=== PATIENT | male | born 1980 | race Caucasian/White ===

== ENCOUNTER 2017-09-28 03:44 | Observation (INO) | payer MEDICAID ==
[2017-09-28] MEDS ORDERED: ONDANSETRON 4 MG/2 ML VIAL IVP ONE (03:48)
[2017-09-28] MEDS ORDERED: NS 1,000 ML IV ONE ×2 (03:48→05:17)
--- NOTE | 2017-09-28 03:51 | EDPHY ---
H & P HPI/ROS: HPI CHIEF COMPLAINT: Flu-like illness, cough, nausea, vomiting HISTORY OF PRESENT ILLNESS: Patient very pleasant 37-year-old male, he reports that he is not take any daily medications, presents emergency room by EMS from a local retirement stating he woke up around 3:00 a.m. with nausea vomiting, and for the past week he has been sick with an upper respiratory tract infection and flu-like illness with cough with productive of sputum. He denies any chest pain. He does endorse chills. No significant abdominal pain. Denies diarrhea. Main complaint is nausea vomiting. Also additionally cough. Out short of breath. Past Medical History: Denies significant medical history except for PTSD and anxiety Past Surgical History: No recent surgery Social History: Homeless, admits to doing cocaine 1 day ago. Denies other drugs or alcohol. Does smoke tobacco daily. Family History: Noncontributory ROS REVIEW OF SYSTEMS: A comprehensive 10 point review of systems is otherwise negative aside from elements mentioned in the history of present illness. Exam Constitutional appears nontoxic, stable vital signs, triage nursing summary reviewed, vital signs reviewed, awake/alert. Eyes normal conjunctivae and sclera, EOMI, PERRLA. HENT normal inspection, atraumatic, moist mucus membranes, no epistaxis, neck supple/ no meningismus, no raccoon eyes. Respiratory clear to auscultation bilaterally, normal breath sounds, no respiratory distress, no wheezing. Cardiovascular rate normal, regular rhythm, no murmur, no edema, distal pulses normal. Gastrointestinal soft, non-tender, no rebound, no guarding, normal bowel sounds, no distension, no pulsatile mass. Genitourinary no CVA tenderness. Musculoskeletal no midline vertebral tenderness, full range of motion, no calf swelling, no tenderness of extremities, no meningismus, good pulses, neurovascularly intact. Skin pink, warm, & dry, no rash, skin atraumatic. Neurologic awake, alert and oriented x 3, AAOx3, moves all 4 extremities equally, motor intact, sensory intact, CN II-XII intact, normal cerebellar, normal vision, normal speech. Psychiatric normal mood/affect. Heme/Lymph/Immune no lymphadenopathy. Differential Diagnosis: Includes but is not limited to in a particular order cocaine abuse, dehydration, electrolyte disturbance, influenza, pneumonia, acute nausea and vomiting Medical Decision Making: Plan for patient IV establishment blood draw, IV fluid bolus 1 L normal saline, IV Zofran for nausea, chest x-ray two view to rule out pneumonia, check influenza, check basic blood work and re-evaluate. Re-evaluation: ED x-ray chest two view: I do not appreciate acute cardiopulmonary disease. Specifically I do not appreciate pneumonia. 0513: Patient is sleeping at this time. Resting comfortably. He did ambulate well to the bathroom give us a urine sample. Blood work shows electrolytes are appropriate. Mild leukocytosis. I do not appreciate pneumonia on his x-ray. It is possibly has a viral process. Influenza still pending at this time. 0620: I did go re-evaluate this patient this time he is complaining of abdominal pain and moaning. Reexamine his abdomen he soft however is complaining of tenderness in his lower abdomen. Given that he is complaining of rather severe abdominal pain I will proceed with CT scan abdomen pelvis with IV contrast. Rule out appendicitis. He does have a leukocytosis. Drug screen noted to be positive for cocaine and marijuana. 0710: CT scan abdomen pelvis with IV contrast reviewed. Shows enteritis. Dilated small bowel loops. No evidence of obstruction or acute appendicitis. Given the patient is having abdominal pain nausea vomiting and ongoing despite intervention here in emergency room he will be admitted to the medicine service for further observation IV fluids nausea pain control. 0718: Spoke with Dr. Burton She agrees to admit. Reason for admission vomiting, nausea, vomiting, dehydration, enteritis and cocaine use. Source: Patient, EMS Constitutional: Initial Vital Signs Heart Rate 83 09/28/17 03:53 Respiratory Rate 18 09/28/17 03:53 Blood Pressure 128/75 H 09/28/17 03:53 O2 Sat (%) 97 09/28/17 03:53 O2 Delivery Mode Room Air Allergies/Adverse Reactions: No Known Allergies Allergy (Unverified 09/28/17 03:53) Home Medications: Medication Instructions Recorded QUEtiapine FUMARATE [Seroquel 25 25 mg PO HS 09/28/17 mg (*)] Medical Decision Making - Data Points Laboratory Results: Laboratory Results 09/28/17 03:45 09/28/17 03:45 Medications Given: Discontinued Medications Acetaminophen (Tylenol) 650 mg PO Q4HRS PRN PRN Reason: Pain, Mild/Fever, Can Take PO Stop: 03/27/18 07:25 Last Admin: 09/28/17 16:06 Dose: 650 mg Al Hydroxide/Mg Hydroxide (Maalox Susp) 30 ml PO Q4HRS PRN PRN Reason: Indigestion Stop: 03/27/18 16:08 Last Admin: 09/29/17 10:06 Dose: 30 ml Albuterol/Ipratropium (Duoneb) 3 ml IH EDNOW ONE Stop: 09/28/17 04:08 Last Admin: 09/28/17 04:40 Dose: 3 ml Fluticasone Propionate (Flonase Nasal [place]) 2 sprays EACHNARE DAILY KRISTIE Stop: 03/28/18 09:59 Last Admin: 09/29/17 10:07 Dose: 1 mcg Sodium Chloride (Ns) 1,000 mls @ 0 mls/hr IV EDNOW ONE; Wide Open PRN Reason: Protocol Stop: 09/28/17 03:49 Last Admin: 09/28/17 04:02 Dose: 1,000 mls Sodium Chloride (Ns) 1,000 mls @ 0 mls/hr IV ONCE ONE PRN Reason: Wide Open Stop: 09/28/17 05:18 Last Admin: 09/28/17 05:21 Dose: 1,000 mls Lorazepam (Ativan Injection) 1 mg IVP EDNOW ONE Stop: 09/28/17 06:24 Last Admin: 09/28/17 06:27 Dose: 1 mg Nicotine (Nicoderm Cq) 21 mg TD DAILY KRISTIE Stop: 03/27/18 14:14 Last Admin: 09/29/17 10:07 Dose: 21 mg Ondansetron HCl (Zofran) 4 mg IVP EDNOW ONE Stop: 09/28/17 03:49 Last Admin: 09/28/17 04:02 Dose: 4 mg Quetiapine Fumarate (Seroquel) 25 mg PO HS KRISTIE Stop: 03/27/18 20:59 Last Admin: 09/28/17 20:45 Dose: Not Given Departure - Departure Disposition: [facility] Acute Clinical Impression: Viral syndrome Abdominal pain Qualifiers: Abdominal location: unspecified location Qualified Code(s): R10.9 - Unspecified abdominal pain Vomiting Qualifiers: Vomiting type: unspecified Vomiting Intractability: unspecified Nausea presence : with nausea Qualified Code(s): R11.2 - Nausea with vomiting, unspecified Condition: Good
[2017-09-28 03:57] LABS: % IMMATURE GRANULYOCYTES 0.3 % (0.0-1.1); ABSOLUTE IMMATURE GRANULOCYTES 0.05 10^3/uL (0.00-0.10); ADD DIFF? NO; ADD MORPH? NO; ADD SCAN? NO; ATYPICAL LYMPHOCYTE FLAG 20 (0-99); FRAGMENT RBC FLAG 0 (0-99); HEMATOCRIT 49.3 % (40.0-51.0); HEMOGLOBIN 17.4 g/dL (13.7-17.5); LEFT SHIFT FLG 0 (0-99); LIPEMIA HEMOLYSIS FLAG 90 (0-99); MEAN CELL HEMOGLOBIN 31.3 pg (27.9-34.1); MEAN CELL HEMOGLOBIN CONCENTR. 35.3 g/dL (32.4-36.7); MEAN CELL VOLUME 88.7 fL (81.5-99.8); MEAN PLATELET VOLUME 9.2 fL (8.7-11.7); PLATELET CLUMPS FLAG 10 (0-99); PLATELET COUNT 254 10^3/uL (150-400); RED BLOOD CELL COUNT 5.56 10^6/uL (4.40-6.38); RED CELL DISTRIBUTION WIDTH 12.7 % (11.5-15.2)
[2017-09-28] MEDS ORDERED: IPRATROPIUM/ALBUTEROL 3 ML DEYVIAL IH ONE (04:07)
[2017-09-28 04:11] LABS: ALANINE AMINOTRANSFERASE 32 IU/L (21-72); ALBUMIN 4.7 g/dL (3.5-5.0); ALKALINE PHOSPHATASE 83 IU/L (38-126); ANION GAP 15 mEq/L (8-16); ASPARTATE AMINOTRANSFERASE 22 IU/L (17-59); BILIRUBIN,TOTAL 0.3 mg/dL (0.1-1.4); BILIRUBIN-CONJUGATED 0.2 mg/dL (0.0-0.5); BILIRUBIN-UNCONJUGATED 0.1 mg/dL (0.0-1.1); CALCIUM 9.8 mg/dL (8.5-10.4); CARBON DIOXIDE 23 mEq/l (22-31); CHLORIDE 109 mEq/L (97-110); CREATININE 0.8 mg/dL (0.7-1.3); GLOMERULAR FILTRATION RATE > 60; GLUCOSE 104 mg/dL (70-100); POTASSIUM 4.3 mEq/L (3.5-5.2); SODIUM 147 mEq/L (134-144); TOTAL PROTEIN 7.7 g/dL (6.3-8.2)
[2017-09-28 05:37] LABS: COLOR YELLOW; LEUKOCYTE ESTERASE,URINE NEGATIVE (NEGATIVE); NITRITE,URINE NEGATIVE (NEGATIVE)
[2017-09-28] MEDS ORDERED: LORazepam 2 MG/ML INJ IVP ONE (06:23)
[2017-09-28] MEDS ORDERED: IOPAMIDOL (ISOVUE-300) 100 ML BTL ONE (06:31)
[2017-09-28] MEDS ORDERED: ACETAMINOPHEN 325 MG TAB PO PRN (07:26)
[2017-09-28] MEDS ORDERED: LORazepam 2 MG/ML INJ IVP PRN (07:26)
[2017-09-28] MEDS ORDERED: ONDANSETRON 4 MG/2 ML VIAL IVP PRN (07:26)
[2017-09-28] MEDS ORDERED: PROMETHAZINE HCL 25 MG/ML INJ IVP PRN (07:26)
--- NOTE | 2017-09-28 11:12 | ASMTCASEMG ---
Living Arrangements What is your living Answers: Alone arrangement? Who do you live with? Type Of Residence What kind of residence do Answers: Homeless you live in? Discharge Plan Comments Coordination Status Comments Notes: Patient is a 37yo single, homeless male who was admitted to the hospital for flu like illness, cough, nausea, and vomiting. Patient also for the past week had an upper respiratory tract infection. No therapies have been ordered. Patient did come by AMS from the [facility]. He most likely will d/c independent. CM available for d/c needs that may arise. Date Signed: 09/28/2017 11:12 AM Electronically Signed By:Arleen Max LCSW
--- NOTE | 2017-09-28 12:07 | PDGENHP ---
History and Physical - Chief Complaint n/v - History of Present Illness 37 yo homeless man with hx of PSA admitted with multiple complaints but largely complaining of n/v. He notes that he has had a very hard time recently with recurrent tooth infections and as such has had several teeth pulled. He feels as if the infection in his tooth that was pulled has gotten into his sinuses and that he swallows the infection and it caused his abdominal issues. He also has a lot of concerns about his car and his sister--he is very tangential but it sounds like he cannot get his car registered without his sisters help and she is somewhere on [address] and he can't find her. He notes that he spent last night searching for his sister in various hotels on [address] and ultimately ended up smoking crack cocaine. He has been staying in a homeless half-way recently and initially stated he was kicked out of the half-way but then took it back and said they would take him back. He denies abdominal pain, he is tolerating clears and feels he can tolerate solid foods. He has no other complaints other than his chronic tooth issues and his car. History Information - Allergies/Home Medication List Allergies/Adverse Reactions: No Known Allergies Allergy (Unverified 09/28/17 03:53) Home Medications: QUEtiapine FUMARATE [Seroquel 25 mg (*)] 25 mg PO HS 09/28/17 [Last Taken Unknown] I have personally reviewed and updated: family history, medical history, social history, surgical history - Past Medical History no pertinent PMH - Surgical History Additional surgical history: multiple tooth extractions - Family History Positive for: non-pertinent - Social History Smoking Status: Current every day smoker Alcohol Use: Occasionally Drug Use: Cocaine, Other (methamphetamine) Review of Systems Review of Systems: ROS: 10pt was reviewed & negative except for what was stated in HPI & below Physical Exam Physical Exam: Temp Pulse Resp BP Pulse Ox 37.3 C 96 16 123/66 H 93 09/28/17 11:38 09/28/17 11:38 09/28/17 11:38 09/28/17 11:38 09/28/17 11:38 Constitutional: no apparent distress, appears nourished, unkempt Eyes: PERRL Ears, Nose, Mouth, Throat: moist mucous membranes, hearing normal Cardiovascular: regular rate and rhythym, no murmur, rub, or gallop Respiratory: no respiratory distress, no rales or rhonchi Gastrointestinal: normoactive bowel sounds, soft, non-tender abdomen, No guarding, No rebound Genitourinary: no bladder tenderness Skin: warm, normal color Musculoskeletal: full muscle strength Neurologic: AAOx3 Psychiatric: No thought process linear Lab Data & Imaging Review 09/28/17 03:45 09/28/17 03:45 WBC 14.47 10^3/uL (3.80-9.50) H 09/28/17 03:45 RBC 5.56 10^6/uL (4.40-6.38) 09/28/17 03:45 Hgb 17.4 g/dL (13.7-17.5) 09/28/17 03:45 Hct 49.3 % (40.0-51.0) 09/28/17 03:45 MCV 88.7 fL (81.5-99.8) 09/28/17 03:45 MCH 31.3 pg (27.9-34.1) 09/28/17 03:45 MCHC 35.3 g/dL (32.4-36.7) 09/28/17 03:45 RDW 12.7 % (11.5-15.2) 09/28/17 03:45 Plt Count 254 10^3/uL (150-400) 09/28/17 03:45 MPV 9.2 fL (8.7-11.7) 09/28/17 03:45 Neut % (Auto) 82.4 % (39.3-74.2) H 09/28/17 03:45 Lymph % (Auto) 11.8 % (15.0-45.0) L 09/28/17 03:45 Rains % (Auto) 4.1 % (4.5-13.0) L 09/28/17 03:45 Eos % (Auto) 0.9 % (0.6-7.6) 09/28/17 03:45 Baso % (Auto) 0.5 % (0.3-1.7) 09/28/17 03:45 Nucleat RBC Rel Count 0.0 % (0.0-0.2) 09/28/17 03:45 Absolute Neuts (auto) 11.92 10^3/uL (1.70-6.50) H 09/28/17 03:45 Absolute Lymphs (auto) 1.71 10^3/uL (1.00-3.00) 09/28/17 03:45 Absolute Monos (auto) 0.59 10^3/uL (0.30-0.80) 09/28/17 03:45 Absolute Eos (auto) 0.13 10^3/uL (0.03-0.40) 09/28/17 03:45 Absolute Basos (auto) 0.07 10^3/uL (0.02-0.10) 09/28/17 03:45 Absolute Nucleated RBC 0.00 10^3/uL (0-0.01) 09/28/17 03:45 Immature Gran % 0.3 % (0.0-1.1) 09/28/17 03:45 Immature Gran # 0.05 10^3/uL (0.00-0.10) 09/28/17 03:45 Sodium 147 mEq/L (134-144) H 09/28/17 03:45 Potassium 4.3 mEq/L (3.5-5.2) 09/28/17 03:45 Chloride 109 mEq/L (97-110) 09/28/17 03:45 Carbon Dioxide 23 mEq/l (22-31) 09/28/17 03:45 Anion Gap 15 mEq/L (8-16) 09/28/17 03:45 BUN 17 mg/dL (7-23) 09/28/17 03:45 Creatinine 0.8 mg/dL (0.7-1.3) 09/28/17 03:45 Estimated GFR > 60 09/28/17 03:45 Glucose 104 mg/dL (70-100) H 09/28/17 03:45 Calcium 9.8 mg/dL (8.5-10.4) 09/28/17 03:45 Total Bilirubin 0.3 mg/dL (0.1-1.4) 09/28/17 03:45 Conjugated Bilirubin 0.2 mg/dL (0.0-0.5) 09/28/17 03:45 Unconjugated Bilirubin 0.1 mg/dL (0.0-1.1) 09/28/17 03:45 AST 22 IU/L (17-59) 09/28/17 03:45 ALT 32 IU/L (21-72) 09/28/17 03:45 Alkaline Phosphatase 83 IU/L (38-126) 09/28/17 03:45 Total Protein 7.7 g/dL (6.3-8.2) 09/28/17 03:45 Albumin 4.7 g/dL (3.5-5.0) 09/28/17 03:45 Lipase 142 IU/L (23-300) 09/28/17 03:45 Urine Color YELLOW 09/28/17 05:08 Urine Appearance HAZY 09/28/17 05:08 Urine pH 5.0 (5.0-7.5) 09/28/17 05:08 Ur Specific [place] 1.031 (1.002-1.030) H 09/28/17 05:08 Urine Protein NEGATIVE (NEGATIVE) 09/28/17 05:08 Urine Ketones TRACE (NEGATIVE) H 09/28/17 05:08 Urine Blood NEGATIVE (NEGATIVE) 09/28/17 05:08 Urine Nitrate NEGATIVE (NEGATIVE) 09/28/17 05:08 Urine Bilirubin NEGATIVE (NEGATIVE) 09/28/17 05:08 Urine Urobilinogen NEGATIVE EU (0.2-1.0) 09/28/17 05:08 Ur Leukocyte Esterase NEGATIVE (NEGATIVE) 09/28/17 05:08 Urine Glucose NEGATIVE (NEGATIVE) 09/28/17 05:08 Nasal Influenza A PCR NEGATIVE FOR FLU A (NEGATIVE) 09/28/17 04:05 Nasal Influenza B PCR NEGATIVE FOR FLU B (NEGATIVE) 09/28/17 04:05 Urine Opiates Screen NEGATIVE (NEGATIVE) 09/28/17 05:08 Urine Barbiturates NEGATIVE (NEGATIVE) 09/28/17 05:08 Ur Phencyclidine Scrn NEGATIVE (NEGATIVE) 09/28/17 05:08 Ur Amphetamine Screen NEGATIVE (NEGATIVE) 09/28/17 05:08 U Benzodiazepines Scrn NEGATIVE (NEGATIVE) 09/28/17 05:08 Urine Cocaine Screen NON-NEGATIVE (NEGATIVE) H 09/28/17 05:08 U Marijuana (THC) Screen NON-NEGATIVE (NEGATIVE) H 09/28/17 05:08 Visualized and Interpreted Chest x-ray results: Yes Chest X-Ray results: normal Visualized and Interpreted imaging results: Yes Interpretation: c/w gastroenteritis, no appendicitis Assessment & Plan Assessment: Abdominal pain (Acute) Viral syndrome (Acute) Vomiting (Acute) 37 yo M with pmh of homelessness and PSA presenting with gastroenteritis # gastroenteritis: vomiting has resolved, patient is tolerating clears, will advance as tolerated, has not had diarrhea. Will continue to advance diet as we are able today and likely dc in am. Imaging reassuring other than gastroenteritis. # polysubstance abuse: patient states that he has been using cocaine recently but states that otherwise he has been sober from years or cocaine and meth use in the past. Recommending cessation. # leukocytosis: likely related to gastroenteritis, does not meet sepsis criteria , will trend # dispo: observation status, suspect patient will be ready for dc on 09/29 Patient new to my care. Old records reviewed and summarized as above. Care plan reviewed with ER doctor as above.
[2017-09-28] MEDS ORDERED: NICOTINE POLACRILEX 2 MG GUM B PRN (14:05)
[2017-09-28] MEDS ORDERED: BISMUTH SUBSALICYLATE 262 MG CHEWABLE TAB PO PRN (16:09)
[2017-09-28] MEDS: MAG HYDROX/AL HYDROX/SIMETH 30 ML UDCUP PO PRN (17:43)
[2017-09-28] MEDS: NICOTINE 21 MG/24 HR PATCH TD SCH (17:43)
[2017-09-28] MEDS: QUEtiapine FUMARATE 25 MG TAB PO SCH ×2 (20:44→20:45)
[2017-09-28 23:25] VITALS: RESP 16
[2017-09-29 03:45] VITALS: TEMP 98.4
[2017-09-29 05:30] LABS: % IMMATURE GRANULYOCYTES 0.2 % (0.0-1.1); ABSOLUTE IMMATURE GRANULOCYTES 0.01 10^3/uL (0.00-0.10); ADD DIFF? NO; ADD MORPH? NO; ADD SCAN? NO; ATYPICAL LYMPHOCYTE FLAG 30 (0-99); FRAGMENT RBC FLAG 0 (0-99); HEMATOCRIT 42.9 % (40.0-51.0); LEFT SHIFT FLG 0 (0-99); LIPEMIA HEMOLYSIS FLAG 90 (0-99); MEAN CELL HEMOGLOBIN 31.1 pg (27.9-34.1); MEAN CELL VOLUME 88.8 fL (81.5-99.8); MEAN PLATELET VOLUME 9.6 fL (8.7-11.7); PLATELET CLUMPS FLAG 0 (0-99); PLATELET COUNT 157 10^3/uL (150-400); RED BLOOD CELL COUNT 4.83 10^6/uL (4.40-6.38); RED CELL DISTRIBUTION WIDTH 12.5 % (11.5-15.2)
[2017-09-29 05:49] LABS: ALANINE AMINOTRANSFERASE 29 IU/L (21-72); ALBUMIN 3.4 g/dL (3.5-5.0); ALKALINE PHOSPHATASE 58 IU/L (38-126); ANION GAP 11 mEq/L (8-16); ASPARTATE AMINOTRANSFERASE 17 IU/L (17-59); BILIRUBIN,TOTAL 0.5 mg/dL (0.1-1.4); CALCIUM 8.7 mg/dL (8.5-10.4); CARBON DIOXIDE 26 mEq/l (22-31); CHLORIDE 105 mEq/L (97-110); CREATININE 0.8 mg/dL (0.7-1.3); GLOMERULAR FILTRATION RATE > 60; GLUCOSE 95 mg/dL (70-100); MAGNESIUM 1.6 mg/dL (1.6-2.3); POTASSIUM 3.7 mEq/L (3.5-5.2); SODIUM 142 mEq/L (134-144); TOTAL PROTEIN 5.8 g/dL (6.3-8.2)
--- NOTE | 2017-09-29 08:35 | HOSPPROG ---
Hospitalist Progress Note Assessment/Plan: 37 yo M with pmh of homelessness and PSA presenting with gastroenteritis # gastroenteritis -nothing acute noted on imagining -tolerating cl liquids -no further vomiting --requesting a regular diet # polysubstance abuse: patient states that he has been using cocaine recently but states that otherwise he has been sober from years or cocaine and meth use in the past. Recommending cessation. # leukocytosis: resolved #Homelessness will ask CM to provide resources #Recent loss -father in August -says his mom is as well as two siblings are #plan: dc if eating and drinking well Subjective: efren has no specific complaints/ is hungry. Objective: Vital Signs Temp Pulse Resp BP Pulse Ox 36.9 C 69 16 115/70 95 09/29/17 03:43 09/29/17 03:43 09/29/17 03:43 09/29/17 03:43 09/29/17 03:43 Laboratory Results 09/29/17 04:49 09/29/17 04:49 09/28/17 09/29/17 09/30/17 05:59 05:59 05:59 Intake Total 3404 Output Total 375 Balance 3029 - Physical Exam Constitutional: no apparent distress, appears nourished, not in pain Eyes: PERRL Ears, Nose, Mouth, Throat: hearing normal Cardiovascular: regular rate and rhythym Respiratory: no respiratory distress Gastrointestinal: normoactive bowel sounds Skin: warm, normal color Musculoskeletal: full muscle strength Neurologic: AAOx3 Psychiatric: interacting appropriately ICD10 Worksheet Patient Problems: Problems Problem Status Onset Abdominal pain Acute Viral syndrome Acute Vomiting Acute
[2017-09-29 09:52] VITALS: BP 123/76; PULSE 67; O2SAT 94
[2017-09-29] MEDS ORDERED: FLUTICASONE NASAL 120 SPRAYS/16 GM MDI EACHNARE SCH (10:00)
[2017-09-29] MEDS: MAG HYDROX/AL HYDROX/SIMETH 30 ML UDCUP PO PRN (10:06)
[2017-09-29] MEDS: NICOTINE 21 MG/24 HR PATCH TD SCH (10:07)
--- NOTE | 2017-09-29 11:54 | ASMTCMCOM ---
CM Note CM Note Notes: CM met w/ pt for dispo planning. CM provided pt w/ [facility] information. CM provided pt w/ a bus pass to the [facility]. CM provided pt donations from the donation closet. CM set pt up w/ a new PCP appointment w/ [facility]. CM inputted pts new pt appointment into discharge summary. CM available for changes. Plan: Independent Date Signed: 09/29/2017 11:53 AM Electronically Signed By:HAMLET Ku
--- NOTE | 2017-09-29 14:06 | ASDISCHSUM ---
Discharge Information Plan Status:Homeless/Senior Care Medically Cleared to Leave:09/28/2017 Discharge Date:09/29/2017 12:22 PM CM D/C Disposition:Home, Routine, Self-Care ADT D/C Disposition:Home, Routine, Self-Care Projected Discharge Date:09/29/2017 12:00 AM Transportation at D/C: Discharge Delay Reason: Follow-Up Date:09/29/2017 12:00 AM Discharge Slot: Final Diagnosis: Placement Information Patient Contact Information Contact Name:ROM Relationship: Address: Home Phone: Work Phone: City: Alternate Phone: State/[place] Code: Email: Financial Information Financial Class: Primary Plan Desc:KEATON RUELAS Primary Plan Number:[id number] Secondary Plan Desc: Secondary Plan Number: Assessment Information [facility] Initial CM Assessment Living Arrangements What is your living Answers: Alone arrangement? Who do you live with? Type Of Residence What kind of residence do Answers: Homeless you live in? Discharge Plan Comments Coordination Status Comments Notes: Patient is a 37yo single, homeless male who was admitted to the hospital for flu like illness, cough, nausea, and vomiting. Patient also for the past week had an upper respiratory tract infection. No therapies have been ordered. Patient did come by AMS from the [facility]. He most likely will d/c independent. CM available for d/c needs that may arise. Date Signed: 09/28/2017 11:12 AM Electronically Signed By:Arleen Max LCSW [facility] CM Progress Note CM Note CM Note Notes: CM met w/ pt for dispo planning. CM provided pt w/ half-way information. CM provided pt w/ a bus pass to the [facility]. CM provided pt donations from the CM donation closet. CM set pt up w/ a new PCP appointment w/ [facility]. CM inputted pts new pt appointment into discharge summary. CM available for changes. Plan: Independent Date Signed: 09/29/2017 11:53 AM Electronically Signed By:HAMLET Ku Intervention Information
--- NOTE | 2017-09-30 00:47 | GDS ---
[f rep st] DISCHARGE SUMMARY DISCHARGE DIAGNOSES: 1. Gastroenteritis. 2. Polysubstance abuse. 3. Leukocytosis. 4. Homelessness. 5. Recent stressors due to a family loss. HISTORY OF PRESENT ILLNESS: Briefly, the patient is a 37-year-old male with a past medical history of polysubstance abuse. [facility] and had a bout of vomiting. He was admitted for further evaluation. He had a CT of the abdomen performed, which showed normal appendix. He has no localized intraabdominal process. He has dysmotile pattern suggestive of underlying gastroenteritis. He has no small bowel obstruction. He was admitted, treated with IV fluids. He was eating and drinking well on discharge. HOSPITAL COURSE PER PROBLEM: 1. Gastroenteritis. Nothing acute on imaging. He has had no further vomiting. He is eating and drinking well today. 2. Polysubstance abuse. He has been using cocaine recently. Have recommended that he avoid this. 3. Leukocytosis, resolved. 4. Homelessness. air conditioning manager is providing resources. 5. Recent loss. He said his mom a few years ago, then his father in August, and he said his 2 siblings are . Case Management has provided him for a follow-up appointment with the primary care provider and also had referred him to the prison. DISCHARGE CONDITION: Stable. Blood pressure is 115/70, respiratory rate is 16 , O2 saturation on room air 95%, is pulse 69, temp is 36.9 Celsius. MEDICATIONS AT DISCHARGE: Please see EMR. DISCHARGE INSTRUCTIONS: 1. It is important that he establish a primary care provider. 2. If he develops fever, chills, chest pain, shortness of breath, return to the ER. /[id number]/MODL MTDD
== END 2017-09-29 12:22 | disposition home or self-care (01) ==
LOC: EDUNIT# → F3E 09:12
PROVIDERS: ADMIT Family Medicine; ATTEND Hospitalist
DX: K52.9 Noninfective gastroenteritis and colitis, unspecified (principal); F14.90 Cocaine use, unspecified, uncomplicated; D72.829 Elevated white blood cell count, unspecified; Z59.0 Homelessness; F43.21 Adjustment disorder with depressed mood
CPT/HCPCS: 71020; 74177; G0378; 80305; 96374; J2060; J2405; Q9967